=== PATIENT | female | born 1950 | race Caucasian/White ===

== ENCOUNTER 2018-01-13 15:10 | Outpatient (RCR) | payer MEDICARE, BC, SELFPAY ==
--- NOTE | 2018-01-13 11:34 | PTDS_ITS ---
Date: January 13, 2018 Referring: Nilson Diaz M.D. Diagnosis: R THR 10/09/17 Subjective: History of Present Illness: Jazz reports being fairly compliant with her HEP. Feels as though she is functioning without hip limitations. Feels much more stable. 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 Standardized Measures: 24% via the LEFS. Objective: The patient has questions regarding posterior hip and LBP. Has crunching/grinding in her low back, but is asymptomatic. This is most noted with flexion and extension exercise. ROM: Lumbar spine ROM is full and painfree in all directions. No pain with instances where she gets the crepitus. Hip ROM is full into flexion, abduction, int/ext rotation on the right without pain. Strength: Grossly 4+/5 bilateral hip abduction and hip extension, 5/5 hip flexion and adduction, quads and hams 5/5. Special Tests: (-) dural tension testing. (-) SLR. (-) slump testing. (-) lumbar compression testing. Treatment: Therapeutic procedure (31798 [id number]) Today's session consisted of a progression of her HEP of t-band resisted adrianna steps and tonto apache walks, as well as instruction in AROM for low back, single/double knee to chest, bent knee fall outs, prone extensions with press ups, as well as reviewing core stabilization with TA activation. Also, incorporated side lying clamshells with t-band. Treatment Time: 3:00 til 3:45 P.M. Assessment: The patient has met all short and long term care administrator goals established at time of I.E., and is holding up quite well functionally. 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 I do feel she is independent in her HEP, and has made excellent gains with her ROM and strength. I believe she is appropriate for discharge. G-Codes: Mobility, i.e. walking and moving around with a projected goal of GPG [id number] CI and a discharge status of GPG [id number] CI Plan: Discharge Jazz from our care. Thank you for this referral! Please sign, date and return to our clinic with your approval........................ Nilson Diaz M.D.
== END 2018-01-23 23:59 | disposition home or self-care (01) ==
LOC: PT 15:10
PROVIDERS: PCP Neuromusculoskeletal Medicine & OMM; Referring Provider Student in an Organized Health Care Education/Training Program; Visit Provider Student in an Organized Health Care Education/Training Program
DX: Z47.1 Aftercare following joint replacement surgery (principal); Z96.641 Presence of right artificial hip joint
CPT/HCPCS: 97110

== ENCOUNTER → 2018-02-06 10:59 | Outpatient (BNVA) | payer MEDICARE, BC, SELFPAY | PROVIDERS: PCP Neuromusculoskeletal Medicine & OMM; Visit Provider Student in an Organized Health Care Education/Training Program | DX: Z47.1 Aftercare following joint replacement surgery (principal); Z96.641 Presence of right artificial hip joint | CPT/HCPCS: 99212 ==

== ENCOUNTER 2018-10-12 10:05 | Outpatient (CLI) | payer MEDICARE, BC, SELFPAY ==
--- NOTE | 2018-10-12 09:57 | DI.RAD_ITS ---
SYMPTOMS/DIAGNOSIS: R AMBAR RIGHT HIP AND PELVIS: Comparison is made with [id number]. There has been no change in the appearance of the right hip prosthesis or surrounding bone. There are mild degenerative changes of the left hip. Calcified uterine fibroid is again noted. IMPRESSION: No acute abnormality.
== END 2018-10-12 10:25 ==
PROVIDERS: PCP Neuromusculoskeletal Medicine & OMM; Referring Provider Neuromusculoskeletal Medicine & OMM; Visit Provider Student in an Organized Health Care Education/Training Program
DX: M16.11 Unilateral primary osteoarthritis, right hip (principal); Z96.641 Presence of right artificial hip joint; M16.12 Unilateral primary osteoarthritis, left hip; Z47.1 Aftercare following joint replacement surgery
CPT/HCPCS: 99213; 73502

== ENCOUNTER → 2023-09-22 21:39 | Outpatient (CLI) | payer MEDICARE, SELFPAY ==
--- NOTE | 2023-09-22 16:43 | DI.RAD_ITS ---
Exam(s) XR LUMBAR SPINE COMPLETE EXAM: XR LUMBAR SPINE COMPLETE CLINICAL HISTORY: LBP WO RADICULOPATHY. TECHNIQUE: 2D digital imaging was performed. FINDINGS: Six views. There is a compression fracture at superior endplate of L2, best seen on the lateral view, probably n ot new. No obvious retropulsion. Disc spaces exhibit normal height in the lumbar spine. No listhes is. Degenerative change noted in the facet joints at the lower 2 levels, most prominent at the left facet joint of L5-S1. Sacroiliac joints appear unremarkable. No scoliosis. Right hip prosthesis is noted. There is a large calcific structure in the center of the pelvis which is probably within a l arge uterine fibroid. Smaller calcifications to the right of this are probably within small uterine fibroids. These findings are unchanged from images of 07/21/2017. IMPRESSION: L2 superior endplate compression fracture, age indeterminate. May not be acute. Calcified uterine fibroids. DATA REPOSITORY: RADIATION DOSE DELIVERED:
== END ==
PROVIDERS: PCP Neuromusculoskeletal Medicine & OMM; Visit Provider Neuromusculoskeletal Medicine & OMM
DX: S32.020A Wedge compression fracture of second lumbar vertebra, initial encounter for closed fracture (principal); X58.XXXA Exposure to other specified factors, initial encounter
CPT/HCPCS: 72110

== ENCOUNTER → 2023-10-15 03:50 | Outpatient (CLI) | payer MEDICARE, SELFPAY ==
--- NOTE | 2023-10-15 13:00 | DI.MRI_ITS ---
Exam(s) MR LUMBAR SPINE WO EXAM: MR LUMBAR SPINE WO CLINICAL HISTORY: S32.020A Wedge compression FX on XR, needs prior to Vertebroplasty. TECHNIQUE: Multiplanar multisequence MRI of the Lumbar spine was performed. COMPARISON: CR XR LUMBAR SPINE COMPLETE from 09/22/2023 FINDINGS: Conus medullaris is at lower L1 level. There is no evidence of conus mass nor subjacent clumping of intrathecal nerve roots to suggest arachnoiditis. 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 No other findings in the sacral canal. Bones:There are no acute fractures nor ominous osseous lesions in the lumbar vertebral bodies and vis ualized sacrum. 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 Also lesser compression fracture of superior endplate of L2, also without bone edema and the refore chronic. With respect to the individual levels... T11-12: No disc herniation. No evidence of retropulsion of the posterior cortex of fractured T12. N o spinal canal stenosis. No foraminal stenosis. Facet joints unremarkable. T12-L1: Normal disc height and signal. Mild annular bulging but without a significant disc herniatio n nor central canal stenosis nor foraminal stenosis. L1-2: There is mild asymmetric narrowing of the right-side of the disc space. There is some asymmetr ic annular bulging in the floor of the exiting right neural foramen but without prominent foraminal s tenosis on either side and there is also no evidence of central canal stenosis. L2-3: Preserved disc height. There is symmetrical annular bulging without a dominant disc herniation . Central canal dimensions are lower normal. No foraminal stenosis. Mild degenerative changes are noted in the facet joints, slightly more so on the left side. L3-4: Normal disc height. Posteriorly there is mild symmetrical annular bulging without a dominant d isc herniation. There is mild-moderate central spinal canal stenosis due to the annular bulging and short AP dimensions of the pedicles. There is no dominant disc herniation. There is no foraminal st enosis on the right side. There is an element of foraminal stenosis on the left due to slightly asym metric facet joint arthropathy on the left side noted. L4-5: This level exhibits normal disc height with mild annular bulging but no disc herniation. Never theless, there is severe central spinal canal stenosis at this level due to combination of mild annul ar bulging, short AP dimensions the pedicles and facet arthropathy and ligamentum flavum hypertrophy. There is mild bilateral foraminal stenosis due to the facet arthropathy and short AP dimensions the pedicles. L5-S1: Normal disc height and signal. No disc herniation or central canal stenosis at this level. N o foraminal stenosis. Mild degenerative changes in both facet joints noted. Soft tissues: paraspinal soft tissues appear unremarkable. IMPRESSION: 1. Most significant findings are at L4-5 level where there is severe central spinal canal stenosis du e to short AP dimensions of the pedicles, mild symmetrical annular bulging (there is no focal disc he rniation), significant bilateral facet arthropathy and ligamentum flavum hypertrophy. There is only mild. Foraminal stenosis bilaterally at this level which is mostly related to the short AP dimension s of the pedicles and facet arthropathy. 2. Milder central canal stenosis evident at L3-4 level for similar reasons. There is mild left-sided foraminal stenosis at this level. 3. Non recent appearing compression fractures of T12 and L2. There is no abnormal bone edema at thes e levels and there is no compromise of the central spinal canal at these levels. DATA REPOSITORY:
== END ==
PROVIDERS: PCP Neuromusculoskeletal Medicine & OMM; Visit Provider Neuromusculoskeletal Medicine & OMM
DX: S32.020D Wedge compression fracture of second lumbar vertebra, subsequent encounter for fracture with routine healing (principal); X58.XXXD Exposure to other specified factors, subsequent encounter
CPT/HCPCS: 72148